=== PATIENT | female | born 1995 | race Hispanic/Latino ===

== ENCOUNTER 2019-12-10 19:43 | Emergency (ER) | payer SELFPAY ==
[2019-12-10 19:47] VITALS: BP 99/56; PULSE 128; RESP 24; TEMP 38.8; O2SAT 97
--- NOTE | 2019-12-10 20:21 | ED.FEVER ---
HPI - Fever General Chief Complaint: Fever Stated Complaint: possible bladder infection, fever Time Seen by Provider: 12/10/19 20:00 History of Present Illness HPI Narrative: Patient is a 24-year-old female who presents ER with concern for UTI. Started having burning urination yesterday with some low back pain. Also suprapubic discomfort. Developed fever yesterday. Also experiencing nausea and vomiting. No alleviating factors. Has not taken any medications for this other than Azo. Patient also reports some low back pain with some radiation down her right leg that began summertime. No trauma. Related Data Allergies Allergy/AdvReac Type Severity Reaction Status Date / Time No Known Allergies Allergy Unverified 05/13/18 11:05 Review of Systems Review of Systems: All systems reviewed & are unremarkable except as noted in HPI and below Constitutional: Constitutional: Reports fatigue and Reports fever(s) ENT: Denies nasal congestion and Denies sore throat Gastrointestinal: Gastrointestinal: Reports abdominal pain, Reports nausea and Reports vomiting Genitourinary: Genitourinary: Denies hematuria, Reports nocturia, Reports dysuria and Reports flank pain PMFSH Past Medical History Medical History (Updated 12/10/19 @ 22:54 by Kenneth Baca MD) Anxiety Mckinley's palsy Surgical History Surgical History (Updated 12/10/19 @ 20:26 by Kenneth Baca MD) No pertinent past surgical history Social History Social History (Updated 12/10/19 @ 20:26 by Kenneth Baca MD) Smoking status: Never smoker Alcohol intake: never Substance use: never Gender identity (if verbalized by the patient): Female Exam Narrative: Exam Narrative: GENERAL: Well-appearing, well-nourished, and in no acute distress. HEAD: Normocephalic, atraumatic. ENT: Mucous membranes moist. CHEST: Clear to auscultation. No respiratory distress. HEART: Tachycardic and regular. Normal peripheral pulses. ABDOMEN: Soft, nontender, nondistended, no CVA tenderness. Back: No midline tenderness thoracic or lumbar spine. Mild right L4 paraspinal muscular tenderness. EXTREMITIES: Normal range of motion. No edema. SKIN: Warm, dry, no rash. NEURO: Alert and oriented x3. 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 Has received IV ceftriaxone. Discussed return precautions and patient verbalized understanding. She has been eating and drinking without issue. Vital Signs Vital signs: Vital Signs Temperature 101.8 F H 12/10/19 19:47 Pulse Rate 128 H 12/10/19 19:47 Respiratory Rate 24 H 12/10/19 19:47 Blood Pressure 99/56 L 12/10/19 19:47 Pulse Oximetry 97 12/10/19 19:47 Temperature 99.7 F H 12/10/19 21:39 Pulse Rate 106 H 12/10/19 22:22 Respiratory Rate 22 H 12/10/19 22:22 Blood Pressure 98/68 L 12/10/19 22:22 Pulse Oximetry 98 12/10/19 22:22 MDM - Fever Lab Data Result diagrams: 12/10/19 20:31 12/10/19 20:31 Labs: Lab Results 12/10/19 12/10/19 12/10/19 Range/Units 20:31 20:31 20:31 WBC 8.7 (4.5-10.0) K/mm3 RBC 4.53 (4.2-5.4) M/mm3 Hgb 13.8 (12.0-15.0) g/dL Hct 40.1 (37.0-47.0) % MCV 88.5 (80-100) fl MCH 30.5 (26-34) pg MCHC 34.4 (32-36) g/dl RDW 11.8 (11.5-14.5) % Plt Count 207 (150-375) k/mm3 MPV 9.7 (7.4-10.4) fl Immature Gran % (Auto) 0.2 (0-0.5) % Neut % (Auto) 81.4 H (45.5-73.1) % Lymph % (Auto) 11.3 L (18.3-44.2) % [place] % (Auto) 6.8 (2.6-8.5) % Eos % (Auto) 0.1 (0-4.4) % Baso % (Auto) 0.2 (0.2-1.2) % Lymph # (Auto) 0.98 (0.9-3.2) K/mm3 [place] # (Auto) 0.6 (0.1-0.6) K/mm3 Eos # (Auto) 0.0 (0-0.3) K/mm3 Baso # (Auto) 0.0 (0.0-0.1) K/mm3 Abs Immat Gran (auto) 0.02 (0.00-0.031) K/mm3 Absolute Neuts (auto) 7.1 H (1.3-6.7) K/mm3 Absolute Nucleated RBC 0.0 (0.0-0.012) K/mm3 Nucleated RBC % 0.0 (0.0-0.2) % PT
[2019-12-10 20:40] VITALS: BP 94/58; PULSE 115; RESP 18; O2SAT 100
[2019-12-10 20:41] LABS: Basophils Percent Auto 0.2 % (0.2-1.2); Eosinophils Percent Auto 0.1 % (0-4.4); Hematocrit 40.1 % (37.0-47.0); Hemoglobin 13.8 g/dL (12.0-15.0); Immature Granulocyte Absolute 0.02 K/mm3 (0.00-0.031); Immature Granulocyte Percent A 0.2 % (0-0.5); Lymphocytes Absolute Auto 0.98 K/mm3 (0.9-3.2); Lymphocytes Percent Auto 11.3 % (18.3-44.2); Mean Corpuscular HGB Conc 34.4 g/dl (32-36); Mean Corpuscular Hemoglobin 30.5 pg (26-34); Mean Corpuscular Volume 88.5 fl (80-100); Mean Platelet Volume 9.7 fl (7.4-10.4); Monocytes Absolute Auto 0.6 K/mm3 (0.1-0.6); Monocytes Percent Auto 6.8 % (2.6-8.5); Neutrophils Absolute Auto 7.1 K/mm3 (1.3-6.7); Neutrophils Percent Auto 81.4 % (45.5-73.1); Platelet Count Result 207 k/mm3 (150-375); Red Blood Count 4.53 M/mm3 (4.2-5.4); Red Cell Distribution Width 11.8 % (11.5-14.5); White Blood Count 8.7 K/mm3 (4.5-10.0)
[2019-12-10 20:51] LABS: INR 1.2; Partial Thromboplastin Time 28.6 SECONDS (22.3-36.8); Prothrombin Time 14.4 Seconds (11.1-14.7)
[2019-12-10] MEDS: SODIUM CHLORIDE 0.9% IV 1,000 ML 999 ML IV CONT ×2 (20:51→21:20)
[2019-12-10] MEDS: MORPHINE SULFATE 4 MG/ML INJ IV PUSH (20:52)
[2019-12-10 20:54] LABS: Lactic Acid Reflex 0.8 mmol/L (0.7-2.1)
[2019-12-10 20:56] LABS: Alanine Aminotransferase 11 U/L (4-35); Albumin Level 4.6 g/dL (3.5-5.1); Alkaline Phosphatase 90 U/L (38-126); Anion Gap 9 mmol/L (8-16); Aspartate Amino Transferase 19 U/L (14-36); Bilirubin,Total 0.7 mg/dL (0.2-1.3); Blood Urea Nitrogen 11 mg/dL (7-17); CRP 5.7 mg/dL (<1.0); Calcium 8.8 mg/dL (8.4-10.2); Carbon Dioxide 25 mmol/L (22-30); Chloride 102 mmol/L (98-107); Estimated CRCL calculation 99 ml/min; Estimated Glomerular Filt Rate > 60; Glucose 108 mg/dL (65-105); Potassium 3.9 mmol/L (3.4-5.0); Sodium 136 mmol/L (137-145)
[2019-12-10 21:11] LABS: Add Urine Microscopic? YES; Appearance Urine Cloudy (Clear); Bacteria Urine 2+ /hpf; Bilirubin Urine Negative (Negative); Blood Urine 2+ (Negative); Color Urine Yellow (Yellow); Glucose Urine UA Negative (Negative); Ketones Urine Trace mg/dL (Negative); Leukocyte Esterase Ur 3+ LEU/UL (Negative); Mucus Urine Rare /lpf; Nitrate Urine Positive (Negative); Protein Urine 2+ mg/dL (Negative); Specific Grav Ur 1.015 (1.001-1.035); Squamous Epithelial Cell Urine Many /hpf (Few); Urobilinogen Urine Negative mg/dL (<2.0); WBC Urine >75 /hpf
[2019-12-10 21:39] VITALS: BP 111/65; PULSE 115; RESP 16; TEMP 37.6; O2SAT 96
[2019-12-10 22:22] VITALS: BP 98/68; PULSE 106; RESP 22; O2SAT 98
--- NOTE | 2019-12-10 22:30 | PC.NURSE ---
pt given yakov mist and crackers for po challenge per md verbal order
[2019-12-10 22:48] VITALS: BP 102/61; PULSE 105; RESP 20; O2SAT 99
[2019-12-10 23:16] VITALS: BP 109/58; PULSE 102; RESP 25; TEMP 36.7; O2SAT 100
== END 2019-12-10 23:19 | disposition home or self-care (01) ==
PROVIDERS: Emergency Medicine Emergency Medical Services; Emergency Provider Emergency Medicine
DX: N12 Tubulo-interstitial nephritis, not specified as acute or chronic (principal)
CPT/HCPCS: 36415; 80053; 81001; 83605; 85025; 85610; 85730; 86140; 87040; 87077; 87086; 87088; 87186; 96361; 96365; 96375; 99284; J0131; J0696; J2270; J7030

== ENCOUNTER 2020-12-18 15:04 | Emergency (ER) | payer SELFPAY ==
--- NOTE | ~2020-12-18 | CT_ITS ---
EXAMINATION: CT brain wo con DATE: 12/18/2020 15:41 INDICATION: Right facial weakness. Headache. TECHNIQUE: Computed tomography (CT) of the head was performed without intravenous contrast. The mA wa s adjusted according to patient size. Iterative reconstruction technique was employed. The dose-lengt h product was 605.33 mGy-cm. COMPARISON: None FINDINGS: There is no intracranial hemorrhage, acute infarction, or abnormal intracranial mass lesion . The ventricles are normal in size. The orbits are normal. There is mild mucosal thickening in the e thmoid sinuses. The mastoid air cells are normal. IMPRESSION: 1. Normal brain. Reviewed, dictated and finalized at location A. IMPRESSION: 1. Normal brain.
[2020-12-18 15:20] VITALS: BP 138/88; PULSE 89; RESP 16; TEMP 36.6; O2SAT 100
[2020-12-18 18:33] VITALS: BP 118/64; PULSE 77; O2SAT 99
[2020-12-18 18:41] VITALS: BP 119/78; PULSE 81; RESP 16; O2SAT 100
--- NOTE | 2020-12-18 18:44 | ED.GENADULT ---
HPI - General Adult General Chief complaint: Neuro Symptoms/Deficit Stated complaint: h/a x last , facial drooping, onset- 2 days ago. Time Seen by Provider: 12/18/20 18:44 Source: patient Mode of arrival: ambulatory Limitations: no limitations History of Present Illness HPI narrative: Patient is here for evaluation of right-sided facial droop first noted 2 days ago. Her symptoms were preceded by a headache. 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 She denies any recent illness or bite. No difficulty breathing, no other focal deficit. Onset (ago): day(s) Radiation: non-radiation Associated symptoms: denies other symptoms Related Data Allergies Allergy/AdvReac Type Severity Reaction Status Date / Time No Known Allergies Allergy Unverified 12/13/19 13:48 Review of Systems Review of Systems: All systems reviewed & are unremarkable except as noted in HPI and below PMFSH Past Medical History Medical History Anxiety Mckinley's palsy Surgical History Surgical History No pertinent past surgical history Social History Social History (Updated 12/18/20 @ 18:56 by Marilee Wan PA-C) Smoking status: Never smoker Alcohol use details: occasional Substance use: never Gender identity (if verbalized by the patient): Female Exam Const: General: healthy appearing, no acute distress and alert Orientation/consciousness: patient oriented x3 HENMT: Head: normal to inspection Ears: TM's normal bilaterally and EAC's normal Face and sinus: Flattened naso-labial fold present (right) Mouth: Yes Normal oral and palatal mucosa present Eyes: Visual Leyva: normal visual leyva by confrontation Eyelids: eyelids normal Pupils: Equal, round and reactive pupils present EOM: EOMs intact bilaterally Other: can close both eyes Resp: Effort & Inspection: normal respiratory effort Auscultation: clear to auscultation bilaterally Cardio: Rate: regular rate Rhythm: regular rhythm Skin: General skin exam: normal color Neuro: General: tone normal, moves all extremities and deep tendon reflexes 2+ bilaterally Cranial nerves: Yes Midline tongue present Speech: normal speech Motor exam (neuro): 5/5 motor strength present throughout and Normal motor muscle tone present throughout Sensory Exam: normal sensation Other: un Extrem: General: normal to inspection Psych: Mental Status: mental status grossly normal Course Course Emergency Course: We will treat as Mckinley's palsy again. With instruction to follow-up with her primary care physician and to watch for any kind of lesions on her face. Will treat with steroids. Vital Signs Vital signs: Vital Signs Temperature 36.6 C 12/18/20 15:20 Pulse Rate 89 12/18/20 15:20 Respiratory Rate 16 12/18/20 15:20 Blood Pressure 138/88 12/18/20 15:20 Pulse Oximetry 100 12/18/20 15:20 Temperature 36.6 C 12/18/20 15:20 Pulse Rate 81 12/18/20 18:41 Respiratory Rate 16 12/18/20 18:41 Blood Pressure 119/78 12/18/20 18:41 Pulse Oximetry 100 12/18/20 18:41 Medical Decision Making Vital Signs Vital Signs: Vital Signs Temperature 36.6 C 12/18/20 15:20 Pulse Rate 89 12/18/20 15:20 Respiratory Rate 16 12/18/20 15:20 Blood Pressure 138/88 12/18/20 15:20 Pulse Oximetry 100 12/18/20 15:20 Temperature 36.6 C 12/18/20 15:20 Pulse Rate 81 12/18/20 18:41 Respiratory Rate 16 12/18/20 18:41 Blood Pressure 119/78 12/18/20 18:41 Pulse Oximetry 100 12/18/20 18:41 Discharge Plan Discharge Clinical Impression: Mckinley's palsy Patient Disposition: Home, Self-Care Condition: Stable Instructions: Antibiotic Form, Mckinley Palsy (ED) Additional Instructions: Complete your steroids as ordered, you received your first dose here in the emergency room so you do not need to start your prescription until tomorrow e
[2020-12-18 19:26] LABS: Basophils Percent Auto 0.3 % (0.2-1.2); Eosinophils Absolute Auto 0.1 K/mm3 (0-0.3); Eosinophils Percent Auto 1.7 % (0-4.4); Hematocrit 39.2 % (37.0-47.0); Hemoglobin 13.6 g/dL (12.0-15.0); Immature Granulocyte Absolute 0.02 K/mm3 (0.00-0.031); Immature Granulocyte Percent A 0.3 % (0-0.5); Lymphocytes Absolute Auto 2.53 K/mm3 (0.9-3.2); Lymphocytes Percent Auto 39.3 % (18.3-44.2); Mean Corpuscular HGB Conc 34.7 g/dl (32-36); Mean Corpuscular Hemoglobin 30.8 pg (26-34); Mean Corpuscular Volume 88.7 fl (80-100); Mean Platelet Volume 9.3 fl (7.4-10.4); Monocytes Absolute Auto 0.6 K/mm3 (0.1-0.6); Monocytes Percent Auto 8.9 % (2.6-8.5); Neutrophils Absolute Auto 3.2 K/mm3 (1.3-6.7); Neutrophils Percent Auto 49.5 % (45.5-73.1); Platelet Count Result 247 k/mm3 (150-375); Red Blood Count 4.42 M/mm3 (4.2-5.4); Red Cell Distribution Width 12.2 % (11.5-14.5); White Blood Count 6.4 K/mm3 (4.5-10.0)
[2020-12-18] MEDS: predniSONE 20 MG TABLET 60 MG PO (19:35)
[2020-12-18 19:43] LABS: Anion Gap 10 mmol/L (8-16); Blood Urea Nitrogen 15 mg/dL (7-17); Calcium 9.3 mg/dL (8.4-10.2); Carbon Dioxide 23 mmol/L (22-30); Chloride 102 mmol/L (98-107); Estimated CRCL calculation 117 ml/min; Estimated Glomerular Filt Rate > 60; Glucose 120 mg/dL (65-110); Potassium 3.7 mmol/L (3.4-5.0); Sodium 135 mmol/L (137-145)
[2020-12-18 20:15] VITALS: BP 120/76; PULSE 80; RESP 18; O2SAT 100
== END 2020-12-18 20:15 | disposition home or self-care (01) ==
PROVIDERS: Physician Assistant; Emergency Provider Emergency Medicine; PCP Emergency Medicine
DX: G51.0 Bell's palsy (principal)
CPT/HCPCS: 36415; 70450; 80048; 85025; 99284; J7512

== ENCOUNTER 2022-01-12 19:51 | Emergency (ER) | payer SELFPAY ==
[2022-01-12] VITALS (8 sets, daily range): BP systolic 100–127; BP diastolic 57–76; PULSE 85–113; RESP 16–17; TEMP 36.6–37.4; O2SAT 98–100
--- NOTE | ~2022-01-12 | CT_ITS ---
EXAMINATION: CT abdomen pelvis wo con DATE: 01/12/2022 21:49 INDICATION: Suprapubic and bilateral flank pain. Nausea and vomiting. TECHNIQUE: Computed tomography (CT) of the abdomen and pelvis was performed without intravenous contr ast. Automated exposure control and iterative reconstruction technique were employed. The dose-length product was 561.12 mGy-cm. COMPARISON: None. FINDINGS: The visualized portions of the lung bases demonstrate mild atelectasis. No pleural effusion . The heart size is normal. No pericardial effusion. There is a small sliding hiatal hernia. The live r, spleen, gallbladder, pancreas, adrenal glands, and kidneys are normal. There are phleboliths in th e pelvis. There are no dilated loops of bowel. The appendix is normal. There are no pathologically en larged lymph nodes. There is no free intraperitoneal fluid. The bones are unremarkable. IMPRESSION: 1. Small sliding hiatal hernia. Reviewed, dictated and finalized at location A.
--- NOTE | 2022-01-12 20:15 | ED.ABDPAIN ---
HPI - Abdominal Pain General Chief Complaint: Abdominal Pain Stated Complaint: Low back/abd pain, tx UTI Time Seen by Provider: 01/12/22 19:55 Source: RN notes reviewed History of Present Illness HPI narrative: Patient presents emergency room from home for abdominal pain. Patient states symptoms again approximately week ago with dysuria she states that 3 days ago she developed pain in the lower abdomen that radiation around to the right back. Pain is described as a pressure nature. States is associated with nausea she denies any fevers or chills vomiting diarrhea or any other symptoms. States she has been taking [id number] medication for urinary tract infection and just took ibuprofen an hour ago Related Data Allergies Allergy/AdvReac Type Severity Reaction Status Date / Time No Known Allergies Allergy Verified 01/12/22 19:58 Review of Systems Review of Systems: Gen.: Denies fevers or chills ENT: Denies congestion Respiratory: Denies shortness of breath or cough CV: Denies chest pain or palpitations GI: See HPI reports dysuria Musculoskeletal: Denies back pain or muscle pain Neuro: Denies numbness, tingling, weakness or focal weakness Skin: Denies rash Except as documented, all other systems reviewed and negative [facility] Past Medical History Medical History Anxiety Mckinley's palsy Surgical History Surgical History No pertinent past surgical history Social History Social History Smoking status: Never smoker Alcohol use details: occasional Substance use: never Gender identity (if verbalized by the patient): Female Exam Narrative: APPEARANCE: No acute distress, nontoxic, resting in bed HEENT: Normocephalic, atraumatic, OMM RESPIRATORY: No respiratory distress, clear to auscultation bilaterally with no rhonchi wheezing or rales CARDIOVASCULAR: RRR s murmur ABDOMINAL: Soft nondistended tender palpation in right lower quadrant left lower quadrant no tenderness right upper quadrant left lower quadrant no rebound or guarding, mild right flank tenderness MUSCULOSKELETAl: Moves all extremities. No clubbing, cyanosis or edema. NEURO: Awake and alert. Following commands, speech normal, no focal deficits SKIN:: Warm, dry. Normal Color PSYCHIATRIC: Normal affect/mood Course Course Emergency Course: Discussed with patient results of workup and diagnosis. Discussed need for follow-up with primary care, proper use of medication, and reasons to return to the emergency department. Patient understands and agrees to current treatment plan Vital Signs Vital signs: Vital Signs Temperature 99.4 F 01/12/22 19:54 Pulse Rate 113 H 01/12/22 19:54 Respiratory Rate 16 01/12/22 19:54 Blood Pressure 127/76 01/12/22 19:54 Pulse Oximetry 100 01/12/22 19:54 Temperature 97.9 F 01/12/22 22:45 Pulse Rate 89 01/12/22 22:45 Respiratory Rate 17 01/12/22 22:45 Blood Pressure 100/57 L 01/12/22 22:45 Pulse Oximetry 99 01/12/22 22:45 MDM - Abdominal Pain MDM Narrative Medical decision making narrative: Patient's abdomen is soft without significant pain or signs of surgical abdomen on serial exams. Lab and x-ray evaluations are reviewed and patient is felt to be a reasonable candidate for outpatient management. Patient was instructed as to limitations of x-ray and laboratory evaluation and encouraged to return to ED or primary physician for repeat exam in 12 hours if continued or worsening pain Lab Data Result diagrams: 01/12/22 20:27 01/12/22 20:27 Labs: Lab Results 01/12/22 01/12/22 01/12/22 Range/Units 20:27 20:27 20:27 WBC 10.1 H (4.5-10.0) K/mm3 RBC 4.01 L (4.2-5.4) M/mm3 Hgb 12.4 (12.0-15.0) g/dL Hct 35.7 L (37.0-47.0) % MCV 89.0 (80-100) fl MCH 30.9 (26-34)
[2022-01-12] MEDS: ONDANSETRON INJ 4 MG/2 ML VIAL IV PUSH (20:19)
[2022-01-12] MEDS: SODIUM CHLORIDE 0.9% IV 1,000 ML 999 ML IV CONT ×2 (20:19→22:45)
[2022-01-12 20:39] LABS: Basophils Percent Auto 0.2 % (0.2-1.2); Eosinophils Absolute Auto 0.1 K/mm3 (0-0.3); Hematocrit 35.7 % (37.0-47.0); Hemoglobin 12.4 g/dL (12.0-15.0); Immature Granulocyte Absolute 0.03 K/mm3 (0.00-0.031); Immature Granulocyte Percent A 0.3 % (0-0.5); Lymphocytes Absolute Auto 2.05 K/mm3 (0.9-3.2); Lymphocytes Percent Auto 20.2 % (18.3-44.2); Mean Corpuscular HGB Conc 34.7 g/dl (32-36); Mean Corpuscular Hemoglobin 30.9 pg (26-34); Mean Platelet Volume 9.5 fl (7.4-10.4); Monocytes Absolute Auto 0.6 K/mm3 (0.1-0.6); Monocytes Percent Auto 5.6 % (2.6-8.5); Neutrophils Absolute Auto 7.4 K/mm3 (1.3-6.7); Neutrophils Percent Auto 72.7 % (45.5-73.1); Platelet Count Result 240 k/mm3 (150-375); Red Blood Count 4.01 M/mm3 (4.2-5.4); Red Cell Distribution Width 12.2 % (11.5-14.5); White Blood Count 10.1 K/mm3 (4.5-10.0)
[2022-01-12 20:40] LABS: Add Urine Microscopic? YES; Appearance Urine Clear (Clear); Bilirubin Urine Negative (Negative); Blood Urine Negative (Negative); Color Urine Red (Yellow); Glucose Urine UA Trace mg/dL (Negative); Ketones Urine Negative (Negative); Leukocyte Esterase Ur 1+ LEU/UL (Negative); Nitrate Urine Positive (Negative); Protein Urine Trace mg/dL (Negative); Specific Grav Ur 1.015 (1.001-1.035)
[2022-01-12 20:47] LABS: Mucus Urine Rare /lpf; Squamous Epithelial Cell Urine Occasional /hpf (Few); WBC Urine >75 /hpf
[2022-01-12 20:47] LABS: Lactic Acid Reflex 0.7 mmol/L (0.7-2.0)
[2022-01-12 20:48] LABS: Alanine Aminotransferase 15 U/L (6-35); Albumin Level 4.4 g/dL (3.5-5.1); Alkaline Phosphatase 105 U/L (38-126); Anion Gap 11 mmol/L (8-16); Aspartate Amino Transferase 21 U/L (14-36); Bilirubin,Total 0.4 mg/dL (0.2-1.3); Blood Urea Nitrogen 13 mg/dL (7-17); Calcium 9.1 mg/dL (8.4-10.2); Carbon Dioxide 24 mmol/L (22-30); Chloride 102 mmol/L (98-107); Estimated CRCL calculation 110 ml/min; Estimated Glomerular Filt Rate > 60; Glucose 110 mg/dL (65-110); Lipase 102 U/L (23-300); Potassium 3.7 mmol/L (3.4-5.0); Sodium 137 mmol/L (137-145)
== END 2022-01-12 23:41 | disposition home or self-care (01) ==
PROVIDERS: Emergency Provider Emergency Medicine
DX: N39.0 Urinary tract infection, site not specified (principal)
CPT/HCPCS: 36415; 74176; 80053; 81001; 81025; 83605; 83690; 85025; 87077; 87086; 87186; 96361; 96365; 96375; 99284; J0131; J0696; J2405; J7030

== ENCOUNTER 2022-09-21 20:04 | Observation (INO) | payer BC, SELFPAY ==
[2022-09-21] VITALS (22 sets, daily range): BP systolic 86–110; BP diastolic 57–72; PULSE 73–115; RESP 16; TEMP 36.3; O2SAT 82–100; BMI 29.0
--- NOTE | 2022-09-21 20:31 | OBADM ---
This patient, Denise Rosen, admitted to the OB room [facility] for observation. Patient/family oriented to hospital policies and general routines including ID bracelet, bed and alarms, visiting hours, pain management, procedures, bathroom and other care routines, personal items, smoking policy, room service/diet, and visiting hours. Patient/Family are encouraged to report perceived risks to care and to ask questions if they do not understand what they are told or what they should do.
[2022-09-21 21:20] LABS: Appearance Urine Cloudy (Clear); Bacteria Urine None Seen /hpf; Bilirubin Urine Negative (Negative); Blood Urine Negative (Negative); Calcium Oxalate Crystals Urine Present /hpf; Color Urine Yellow (Yellow); Glucose Urine UA Negative (Negative); Ketones Urine Trace mg/dL (Negative); Leukocyte Esterase Ur Trace LEU/UL (Negative); Nitrate Urine Negative (Negative); Non Pathogenic Casts 0-2; Protein Urine Trace mg/dL (Negative); Specific Grav Ur 1.031 (1.001-1.035); Squamous Epithelial Cell Urine Moderate /hpf (Few); pH Urine 5.5 (5.0-9.0)
--- NOTE | 2022-09-21 21:21 | PC.NURSE ---
Dr. Sebastian Bowers notified of , 33.6 weeks arriving to unit with c/o contractions. Dr. Sebastian Bowers aware of Contractions q3-6mins, vitals, and labs. PT reports she has a history of labor with first two pregnancies. Orders to give a 0.25 mg dose of Terbutaline, up to 3 doses, perform FFN, and cervical exam. If contractions subside PT released for discharge.
[2022-09-21 21:22] LABS: Add Urine Microscopic? YES
[2022-09-21] MEDS: TERBUTALINE SULFATE 1 MG/ML VIAL 0.25 MG SUB-Q (21:42)
[2022-09-21 22:18] LABS: Fetal Fibronectin Positive
--- NOTE | 2022-09-21 22:31 | PC.NURSE ---
Dr. Sebastian Bowers notified of FFN results, no contractions per toco or PT. Orders for discharge received with labor precautions, oral hydration, follow up with OBGYN within 48hrs.
--- NOTE | 2022-09-25 06:15 | P.PNOB_ITS ---
OB - Triage/Final Diagnosis Visit Information Reason for evaluation: threatened labor Comments/Additional reasons for admission: I have assessed the risk for this patient, Denise Rosen, and determined that she would benefit from observation care. Evaluation Laboratory results: Laboratory Tests 09/21/22 09/21/22 20:44 21:34 Urine Color Yellow Urine Appearance Cloudy H Urine pH 5.5 Ur Specific [place] 1.031 Urine Protein Trace Urine Glucose (UA) Negative Urine Ketones Trace H Ur Blood (Man) Negative Urine Nitrate Negative Urine Bilirubin Negative Urine Urobilinogen 1.0 Leukocyte Esterase Rfl Trace H Urine RBC 3-5 H Urine WBC 6-10 H Ur Squamous Epith Cells Moderate Calcium Oxalate Crystal Present Urine Bacteria None seen Urine Casts 0-2 Fibronectin Positive
== END 2022-09-21 22:54 | disposition home or self-care (01) ==
PROVIDERS: Admitting Provider Obstetrics & Gynecology; Visit Provider Obstetrics & Gynecology
DX: O47.03 False labor before 37 completed weeks of gestation, third trimester (principal); Z3A.33 33 weeks gestation of pregnancy
CPT/HCPCS: 81001; 82731; 87086; 87088; 96372; G0378; G0379; J3105

== ENCOUNTER 2023-08-14 01:24 | Emergency (ER) | payer BC, SELFPAY ==
[2023-08-14 01:24] VITALS: BP 119/84; PULSE 72; RESP 14; TEMP 36.9; O2SAT 100
--- NOTE | 2023-08-14 01:39 | ED.ABDPAIN ---
HPI - Abdominal Pain General Chief Complaint: Abdominal Pain Stated Complaint: ABD PAIN X 3 DAYS Time Seen by Provider: 08/14/23 01:29 History of Present Illness HPI narrative: Patient presenting with epigastric pain radiating to her back, with nausea vomiting, has been ongoing for the last 3 days intermittently, worse with lying flat, and last thing she ate was a burger with fries today. Has been told she has gastritis in the past and was taking Protonix. No chest pain or focal numbness or weakness. Related Data Allergies Allergy/AdvReac Type Severity Reaction Status Date / Time No Known Allergies Allergy Verified 08/14/23 01:30 Review of Systems Review of Systems: All systems reviewed & are unremarkable except as noted in HPI and below PMFSH Past Medical History Medical History Anxiety Mckinley's palsy Surgical History Surgical History No pertinent past surgical history Social History Social History Smoking status: Never smoker Alcohol use details: occasional Substance use: never Gender identity (if verbalized by the patient): Female Exam Narrative: EXAMINATION OF ORGAN SYSTEMS/BODY AREAS: Constitutional: Vital signs per nursing GENERAL:[No acute distress, non-toxic appearing.] HEAD: Normal with no signs of head trauma. EYES: EOMI, conjunctiva normal ENT: Hearing grossly intact LUNGS: Nonlabored breathing. HEART: [Regular rate and rhythm], normal pulses bilaterally ABD: [Soft], [minimal tender to palpation epigastric abdomen] EXT: Normal range of motion SKIN: [No rashes or lesions.] NEURO: [Alert and oriented x 3. No gross focal sensory or strength deficits.] PSYCH: Normal affect Course Vital Signs Vital signs: Vital Signs Temperature 98.4 F 08/14/23 01:24 Pulse Rate 72 08/14/23 01:24 Respiratory Rate 14 08/14/23 01:24 Blood Pressure 119/84 08/14/23 01:24 Pulse Oximetry 100 08/14/23 01:24 Oxygen Delivery Room Air 08/14/23 01:24 Temperature 98.4 F 08/14/23 01:24 Pulse Rate 72 08/14/23 01:24 Respiratory Rate 14 08/14/23 01:24 Blood Pressure 119/84 08/14/23 01:24 Pulse Oximetry 100 08/14/23 01:24 Oxygen Delivery Room Air 08/14/23 01:24 MDM - Abdominal Pain MDM Narrative Medical decision making narrative: Electronic medical record was reviewed. Patient presented to the ED with complaint of [epigastric abdominal pain and nausea]. Vitals [were within acceptable limits]. Physical exam revealed [minimal tenderness to palpation in epigastric abdomen]. Based on the patient's history and physical exam, my differential includes but is not limited to [gastritis, gastroenteritis, cholecystitis, pancreatitis, PUD]. [IV access was established by nursing staff. Patient was given zofran, famotidine]. CBC, BMP, lipase, LFTs, bilirubin and alk phos were obtained. Labs were pertinent for normal labs. On reevaluation, the patient states that they are feeling better but still some pain. She is therefore given IV dose of Protonix, Reglan, morphine, Benadryl. On re-evaluation, she is now feeling much better. There were no witnessed episodes of vomiting in the emergency department. They are not complaining of any new abdominal pain. Repeat examination did not show any significant guarding or rebound. No new tenderness. At this time I do not feel there is any further emergent treatment to be provided. The patient was given strict return precautions, if they are to develop any worsening abdominal pain, vomiting, or blood in the vomit they are to return to the emergency department immediately. Patient verbally acknowledges understanding these directions. [The patient was informed of the above diagnostic test findings.] No further workup is necessary at this time. They will be discharged home [with prescript
[2023-08-14] MEDS: ONDANSETRON INJ 4 MG/2 ML VIAL IV PUSH (01:41)
[2023-08-14] MEDS: LACTATED RINGERS 1,000 ML 999 ML IV CONT (01:41)
[2023-08-14] MEDS: FAMOTIDINE 20 MG/2 ML VIAL IV PUSH (01:41)
[2023-08-14 01:46] LABS: Basophils Percent Auto 0.4 % (0.2-1.2); Eosinophils Absolute Auto 0.2 K/mm3 (0-0.3); Eosinophils Percent Auto 3.9 % (0-4.4); Hematocrit 34.1 % (37.0-47.0); Hemoglobin 11.4 g/dL (12.0-15.0); Lymphocytes Absolute Auto 2.78 K/mm3 (0.9-3.2); Lymphocytes Percent Auto 49.7 % (18.3-44.2); Mean Corpuscular HGB Conc 33.4 g/dl (32-36); Mean Corpuscular Hemoglobin 29.6 pg (26-34); Mean Corpuscular Volume 88.6 fl (80-100); Mean Platelet Volume 9.3 fl (7.4-10.4); Monocytes Absolute Auto 0.4 K/mm3 (0.1-0.6); Monocytes Percent Auto 6.6 % (2.6-8.5); Neutrophils Absolute Auto 2.2 K/mm3 (1.3-6.7); Neutrophils Percent Auto 39.4 % (45.5-73.1); Platelet Count Result 239 k/mm3 (150-375); Red Blood Count 3.85 M/mm3 (4.2-5.4); Red Cell Distribution Width 12.8 % (11.5-14.5); White Blood Count 5.6 K/mm3 (4.5-10.0)
[2023-08-14 01:56] LABS: Alanine Aminotransferase 21 U/L (6-35); Albumin Level 4.4 g/dL (3.5-5.1); Alkaline Phosphatase 85 U/L (38-126); Anion Gap 9 mmol/L (4-12); Aspartate Amino Transferase 34 U/L (14-36); Bilirubin,Total 0.3 mg/dL (0.2-1.3); Blood Urea Nitrogen 14 mg/dL (7-17); Calcium 9.5 mg/dL (8.4-10.2); Carbon Dioxide 23 mmol/L (22-30); Chloride 108 mmol/L (98-107); Estimated CRCL calculation 112 ml/min; Estimated Glomerular Filt Rate > 60; Glucose 112 mg/dL (65-110); Lipase 111 U/L (23-300); Potassium 3.5 mmol/L (3.4-5.0); Sodium 140 mmol/L (137-145)
[2023-08-14] MEDS: METOCLOPRAMIDE HCL INJ 10 MG/2 ML VIAL IV PUSH (02:43)
[2023-08-14] MEDS: MORPHINE SULFATE (*CRX) 2 MG/ML INJ IV PUSH (02:43)
[2023-08-14] MEDS: PANTOPRAZOLE SODIUM IV 40 MG VIAL IV PUSH (02:43)
[2023-08-14 02:48] LABS: Appearance Urine Cloudy (Clear); Bacteria Urine Rare /hpf; Bilirubin Urine Negative (Negative); Blood Urine 3+ (Negative); Color Urine Yellow (Yellow); Glucose Urine UA Negative (Negative); Ketones Urine Trace mg/dL (Negative); Leukocyte Esterase Ur Negative LEU/UL (Negative); Nitrate Urine Negative (Negative); Non Pathogenic Casts 0-2; Protein Urine Negative (Negative); RBC Urine >100 /hpf (0-2); Squamous Epithelial Cell Urine Occasional /hpf (Few); WBC Urine 0-5 /hpf (0-3)
[2023-08-14 02:49] LABS: Add Urine Microscopic? YES; Specific Grav Ur 1.039 (1.001-1.035)
[2023-08-14] MEDS: diphenhydrAMINE HCl INJ 50 MG/ML VIAL 25 MG IV PUSH (02:53)
[2023-08-14 03:02] VITALS: BP 109/75; PULSE 64; RESP 16; O2SAT 100
== END 2023-08-14 03:02 | disposition home or self-care (01) ==
PROVIDERS: Emergency Provider Emergency Medicine; PCP Physician Assistant
DX: R10.13 Epigastric pain (principal)
CPT/HCPCS: 36415; 80053; 81001; 81025; 83690; 85025; 96361; 96374; 96375; 99284; C9113; J1200; J2270; J2405; J2765; J7120